=== PATIENT | female | born 1970 | race Caucasian/White ===

== ENCOUNTER → 2018-03-24 | Outpatient (CLI) | payer OTHER | LOC: M.ULTRA 12:46 | DX: R07.9 Chest pain, unspecified (principal); R10.9 Unspecified abdominal pain ==

== ENCOUNTER → 2018-07-02 | Outpatient (CLI) | payer OTHER ==
--- NOTE | 2018-07-02 16:54 | EXE ---
[place] [address] STRESS ECHOCARDIOGRAM Name: YARI SALINAS Room: [facility]#: [id number] Admission: 07/02/18 Attend Phys: BELINDA Jewell Discharge: Date of : 74 Date of Service: 07/02/18 1654 Report #: [id number] THIS REPORT FOR: //name// APPROVED REPORT Study performed: 07/02/2018 11:42:33 Exam: Stress Echocardiogram Indication: Chest pain Patient Location: Out-Patient Stress Nurse: Tess Thakkar RN Supervising Physician: Trevor Longoria MD Status: routine Ht: 5 ft 6 in HR: 75 bpm BP: 141/89 mmHg Medical History Cardiac Risk Factors: Hyperlipidemia, HTN Procedure The patient underwent an Exercise Stress Test using the Pascual Protocol. Blood pressure, heart rate, and EKG were monitored. An Echocardiogram was performed by service desk technician in four stages in quad fashion. At peak stress, four selected images were obtained and placed side by side with resting images for comparison. Stress Test Details Stress Test: Exercise stress testing was performed using a Pascual protocol. HR Resting HR: 75 bpm Max Heart Rate (APMHR): 174 bpm Max HR Achieved: 171 bpm Target HR (85% APMHR): 147 bpm % of APMHR: 98 Recovery HR: 92 bpm HR response to stress: Normal HR response to stress BP Resting BP: 141/89 mmHg Max BP: 187/79 mmHg Recovery BP: 138/86 mmHg ECG Resting ECG: Sinus Rhythm Stress ECG: Sinus Rhythm, nonspecific [place] [address] STRESS ECHOCARDIOGRAM Name: YARI SALINAS Room: [facility]#: [id number] Admission: 07/02/18 Attend Phys: BELINDA Jewell Discharge: Date of : 74 Date of Service: 07/02/18 1654 Report #: [id number] ST Change: Upsloping ST depression Maximum ST Deviation: 0.5 mm Arrhythmia: VPC's Recovery ECG: Sinus Rhythm Recovery ST Deviation: 0 mm Recovery Arrhythmia: None Clinical Reason for Termination: Completed protocol, Dyspnea, Maximal effort Exercise duration: 11 min 56 sec Highest Stage Achieved: Stage 4: 4.2 mph at 16% grade. Exercise capacity: 13.48 METs Pre-Stress Echo The resting Echocardiogram showed normal left ventricular contractility with an estimated Ejection Fraction of about 60-65%. Post-Stress Echo The stress Echocardiogram showed normal left ventricular contractility with an estimated Ejection Fraction of about >70%. Conclusion Clinical Response: Non-ischemic Exercise Capacity: Superior Stress ECG Response: Equivocal Stress Echo Images: Non-ischemic low risk stress echo for future cardiac events Other Information Study Quality: Good <Conclusion> low risk stress echo for future cardiac events <ELECTRONICALLY SIGNED> By: Trevor Longoria MD, FACC 07/02/181653 53 53 Trevor Longoria MD, FACC /INF
== END ==
LOC: M.CRD 11:00
DX: I10 Essential (primary) hypertension (principal); R07.9 Chest pain, unspecified; R01.1 Cardiac murmur, unspecified